=== PATIENT | female | born 1955 | race Caucasian/White ===

== ENCOUNTER → 2017-12-13 | Outpatient (CLI) | payer OTHER ==
[~2017-12-13] MED LIST: CYMBALTA30 MG PO; MOBIC7.5 M1 PO; [UNRECOGNIZED DRUG - REMARK]
--- NOTE | 2017-12-14 08:03 | PF ---
[address] [address] PULMONARY FUNCTION REPORT Name: MIGUEL BESS Room: [facility]#: [id number] Admission: 12/13/17 Attend Phys: Trish Jacome Discharge: Date of : 59 Report #: [id number] THIS REPORT FOR: //name// CC: Trish Singletary DATE OF SERVICE: 12/13/2017 TEA Dick is nurse practitioner, Dr. Christian Key is the physician. A 62-year-old female with dyspnea. Spirometries demonstrate mild obstructive defect. No significant improvement after single dose of inhaled bronchodilator. Best spirometry shows an FEV1 at 2.2 and FVC of 3.2, ratio is 69%. Mid flow rates are mildly diminished. [id number] is 51% of predicted. No improvement after bronchodilator responses is noted. Lung volumes performed via plethysmography were within normal limits. Total lung capacity is 98% of predicted. Vital capacity is 109% of predicted. RV is lower limits of normal. Diffusion is at the lower limits of normal at 81% and DLCO absolute was 76%. IMPRESSION: Abnormalities suggest very mild obstructive airways disease, mostly small airways. No significant improvement is noted after single dose of inhaled bronchodilators, normal lung volumes. <ELECTRONICALLY SIGNED> By: Linus Fuentes MD 12/14/17 0803 1423 MD alvaro Chi
== END ==
LOC: M.PUL 10:00
DX: R06.00 Dyspnea, unspecified (principal); Z77.018 Contact with and (suspected) exposure to other hazardous metals

== ENCOUNTER → 2018-01-26 | Outpatient (CLI) | payer OTHER | LOC: M.RAD 13:59 | DX: M81.0 Age-related osteoporosis without current pathological fracture (principal); Z78.0 Asymptomatic menopausal state ==

== ENCOUNTER 2020-07-23 20:07 | Emergency (ER) | payer OTHER ==
[~2020-07-23] VITALS: Ht 154.9 cm; Wt 72.6 kg
[2020-07-23] MEDS ORDERED: LIPITOR10 MG PO (20:28)
[2020-07-23] MEDS ORDERED: ASA81BEC PO (20:28)
[2020-07-23 21:11] LABS: ABSOLUTE LYMPHOCYTES 1.3 thou/uL (0.8-5.3); ABSOLUTE MONOCYTES 0.6 thou/uL (0.0-1.2); ABSOLUTE NEUTROPHILS 6.7 thou/uL (1.6-8.1); BASOPHILS 0.5 %; EOSINOPHILS 0.3 %; HEMATOCRIT 43.9 % (37.0-47.0); HEMOGLOBIN 14.8 gm/dL (12.0-15.0); LYMPHOCYTES 14.8 %; MCH 30.5 pg (26.0-34.0); MCHC 33.7 g/dL (28.0-37.0); MCV 90.7 fL (80.0-100.0); MONOCYTES 6.6 %; MPV 7.8 fl. (7.2-11.1); NUCLEATED RBCS 0 /100WBC; PLATELET COUNT* 273 thou/uL (150-400); POLYS 77.8 %; RBC 4.84 mil/uL (4.20-5.00); RDW-CV 13.2 % (10.5-14.5); WBC 8.6 thou/uL (4.0-11.0)
[2020-07-23 21:11] LABS: URINE BILIRUBIN NEGATIVE (Negative); URINE BLOOD 1+ (Negative); URINE CLARITY CLEAR; URINE COLOR YELLOW; URINE GLUCOSE-RANDOM NEGATIVE (Negative); URINE KETONES 2+ (Negative); URINE NITRITE-REFLEX NEGATIVE (Negative); URINE PROTEIN TRACE (Negative); URINE UROBILINOGEN 0.2 E.U./dl (0.2-1.0)
[2020-07-23 21:13] LABS: URINE LEUKOCYTES-REFLEX 3+ (Negative)
[2020-07-23 21:17] LABS: CALCIUM 9.1 mg/dL (8.5-10.1); CREATININE 0.8 mg/dL (0.6-1.3); POTASSIUM 3.4 mmol/L (3.5-5.1)
[2020-07-23 21:20] LABS: SQUAMOUS >10 Many /LPF (0-3)
[2020-07-23 21:21] LABS: HYALINE CASTS 0-3 Few /LPF (None Seen)
[2020-07-23 21:22] LABS: ALBUMIN 4.1 g/dL (3.4-5.0); TOTAL BILIRUBIN 0.7 mg/dL (<0.1-1.0); TOTAL PROTEIN 7.4 g/dL (6.4-8.2)
[2020-07-23 21:22] LABS: BACTERIA-REFLEX 1-9 Few /HPF (None Seen); CRYSTALS None Seen /LPF (None Seen); MUCUS None Seen strn/LPF (None Seen); URINE RBC 0-2 Rare /HPF (0-2); URINE WBC-REFLEX 6-15 Few /HPF (0-5)
[2020-07-24] MEDS ORDERED: ZOFRAN ODT4 MG PO (00:01)
[2020-07-24] MEDS ORDERED: MACROBID 100 M100 M1 PO (00:01)
[2020-07-24] MEDS ORDERED: PYRIDIUM100 M1 PO (00:01)
[2020-07-24 00:41] VITALS: BP 154/89
--- NOTE | 2020-07-24 16:11 | EKG ---
[place] [address] ELECTROCARDIOGRAM REPORT Name: MIGUEL BESS Room: [facility]#: [id number] Admission: 07/23/20 Attend Phys: Discharge: 07/24/20 Date of : 59 Date of Service: 07/23/202022 Report #: [id number] THIS REPORT FOR: //name// [facility] ED Test Date: 2020-07-23 Test Time: 20:23:21 Pat Name: MIGUEL BESS Department: Room: Gender: F Manager Consumer: [place] : 1955 Requested By: Demetra Guardado Order Number: [id number] Reading MD: Adis Ceja Measurements Intervals [place] Rate: 111 P: 43 WA: 136 QRS: 86 QRSD: 93 T: 23 QT: 345 QTc: 469 Interpretive Statements Sinus tachycardia Borderline right axis deviation Baseline wander in lead(s) II,III,aVL,aVF,V2 Compared to ECG 06/21/2012 14:32:48 Sinus rate has increased Electronically Signed On 07-24-2020 16:11:48 [employer] by Adis Ceja [email or web address] <ELECTRONICALLY SIGNED> By: Adis Ceja MD, [facility] 07/24/201610 22 22 Adis Ceja MD, [facility] /EPI
== END 2020-07-24 00:41 | disposition left against medical advice (07) ==
LOC: M.ERS 20:07
PROVIDERS: Personal Emergency Response Attendant
DX: N39.0 Urinary tract infection, site not specified (principal); Z20.822 Contact with and (suspected) exposure to COVID-19

== ENCOUNTER → 2021-05-19 | Outpatient (CLI) | payer OTHER ==
[~2021-05-19] MED LIST changes: +ASA81BEC PO; +LIPITOR10 MG PO; +MACROBID 100 M100 M1 PO; +PYRIDIUM100 M1 PO; +ZOFRAN ODT4 MG PO
--- NOTE | ~2021-05-19 | PF ---
[address] [address] PULMONARY FUNCTION REPORT Name: MIGUEL BESS Room: [facility]#: [id number] Admission: 05/19/21 Attend Phys: Giorgi Jimenez DO Discharge: Date of : 59 Report #: [id number] THIS REPORT FOR: cc: Giorgi Jimenez, Tye Cain MD ~ DATE OF VISIT: 05/19/2021 INTERPRETATION: The FEV1/FVC ratio is decreased to 68% with an FVC normal at 101%, the FEV1 is also normal at 89%. The FEF 25-75 is decreased to 47%. After the administration of a bronchodilator, there is no significant increase in any of these values. The patient's FEV1 is 1.87 liters. This does not increase after the administration of a bronchodilator. The total lung capacity is normal at 98%. The residual volume is mildly decreased at 79%. The DLCO as adjusted for hemoglobin is mildly decreased to 79% as well. IMPRESSION: 1. Mild obstruction without evidence of reversibility. 2. Essentially normal lung volumes. There is minimal decrease in residual volume to 79%, likely normal variant. 3. The DLCO as adjusted for hemoglobin is 79%. By: [id number] Chinchilla MD /nt
== END ==
LOC: M.PUL 04-30 13:00
PROVIDERS: ATTEND Family Medicine
DX: J63.2 Berylliosis (principal)